=== PATIENT | female | born 1955 | race Caucasian/White ===

== ENCOUNTER 2017-08-12 09:49 | Observation (INO) | payer BC ==
--- NOTE | 2017-08-12 10:03 | Emergency Department Record ---
History of Present Illness - General Chief Complaint: Palpitations Stated Complaint: PALPITATIONS Time Seen by Provider: 08/12/17 10:00 Source: Patient Mode of Arrival: Ambulatory Limitations: No limitations - History of Present Illness Initial Comments: The patient is here due to experiencing palpitations off and on all night long last night. She denied any pain with the palpitations. The patient reports she was getting them almost every minute all night long and it felt like her heart was beating irregularly. She denies any pain, SOB, ABHISHEK, sweating or nausea during the palpitations. Presently her symptoms have resolved. Additionally she had an episode of palpitations last week at work and felt very dizzy during the episode. She also had mild mid back pain during the episode but it resolved when the palpitations resolved. She denies any cardiac risk factors and has no hx of any GARCIA or CP with exertion. MD Complaint: Palpitations Onset/Timin -: Week(s) Associated Symptoms: Denies other symptoms - Related Data Home Medications Medication Instructions Recorded Confirmed Last Taken Levothyroxine Sodium [Synthroid] 88 mcg PO DAILY 08/12/17 08/12/17 Unknown Allergies Allergy/AdvReac Type Severity Reaction Status Date / Time Sulfa (Sulfonamide Allergy Intermediate VOMITING Verified 08/12/17 09:52 Antibiotics) Travel Screening - Travel/Exposure Within Last 30 Days Have you traveled within the last 30 days?: No Review of Systems Constitutional: Denies: Chills, Fever Eyes: Denies: Eye discharge ENT: Denies: Congestion Respiratory: Denies: Cough, Dyspnea Cardiovascular: Reports: Arrhythmia. Denies: Chest pain Endocrine: Denies: Fatigue Gastrointestinal: Denies: Abdominal pain Genitourinary: Denies: Dysuria Musculoskeletal: Denies: Arthralgia Past Medical History - SOCIAL HISTORY Smoking Status: Former smoker Alcohol Use: None Drug Use: None - RESPIRATORY Hx Respiratory Disorders: No - CARDIOVASCULAR Hx Cardio Disorders: No - NEURO Hx Neuro Disorders: No - GI Hx GI Disorders: Yes Hx Reflux: Yes Hx Nausea/Vomiting: Yes - Hx Genitourinary Disorders: No - ENDOCRINE Hx Endocrine Disorders: Yes Hx Thyroid Disease: Yes - MUSCULOSKELETAL Hx Musculoskeletal Disorders: Yes Hx Arthritis: Yes - PSYCH Hx Psych Problems: No - HEMATOLOGY/ONCOLOGY Hx Hematology/Oncology Disorders: No Family Medical History Any Significant Family History?: Yes Hx Cancer: Mother, Grandparents *Cancer Comment: breast Physical Exam - General General Appearance: Alert, Oriented x3, Cooperative, No acute distress - Head Head exam: Atraumatic - Eye Eye exam: Normal appearance, PERRL - ENT ENT exam: Normal exam Throat exam: Normal inspection. negative: Tonsillar erythema, Tonsillar exudate - Neck Neck exam: Normal inspection, Full ROM, Lymphadenopathy (Mild L anterior cervical nodes.). negative: Meningismus, Tenderness - Respiratory Respiratory exam: Normal lung sounds bilaterally. negative: Respiratory distress - Cardiovascular Cardiovascular Exam: Regular rate, Normal rhythm, Normal heart sounds - GI/Abdominal GI/Abdominal exam: Soft, Normal bowel sounds. negative: Tenderness - Extremities Extremities exam: Normal inspection, Full ROM, Normal capillary refill. negative: Calf tenderness, Pedal edema, Tenderness - Neurological Neurological exam: Alert, Normal gait, Oriented X3. negative: Abnormal gait, Motor sensory deficit - Psychiatric Psychiatric exam: negative: Depressed Course Vital Signs 08/12/17 09:52 Temperature 98.1 F Pulse Rate 77 Respiratory 18 Rate Blood Pressure 178/99 Pulse Ox 98 - Reevaluation(s) Reevaluation #1: The patient is doing very well at this time. She did have a 25 second run of SVT vs Aflutter which did resolve spontaneously. I did explain to her that I felt the prudent thing to do is admit her to the hospital overnight and monitor her HR and obtain a Cardiology consult. I also did discuss the case with Dr. Murdock and he does agree to the plan. 08/12/17 11:11 Medical Decision Making - Data Complexity MDM Data: Labs Ordered and/or Reviewed, X-Ray Ordered and/or Reviewed, EKG Ordered and/or Reviewed - Lab Data Result diagrams: 08/12/17 10:11 08/12/17 10:11 - EKG Data -: EKG Interpreted by Me EKG: No Acute Changes - Radiology Data Radiology results: Report reviewed (CXR: Neg) Disposition Disposition: Admit Clinical Impression: Intermittent palpitations Disposition: Still a Patient at [facility] Decision to Admit: Admit from ER Decision to Admit Date: 08/12/17 Decision to Admit Time: 11:13 Accepting Physician: Collette. Time Discussed w/Accepting Physician: 11:13 Condition: (2) Stable Time of Disposition: 11:13 Quality - Quality Measures Quality Measures: N/A - Blood Pressure Screening View Details: Yes Does Patient Have Any of the Following: No Blood Pressure Classification: Hypertensive Reading Systolic Measurement: 178 Diastolic Measurement: 99 Screening for High Blood Pressure: < Pre-Hypertensive BP, F/U Documented > [ G8950] Pre-Hypertensive Follow-up Interventions: Referral to alternative/primary care provider.
[2017-08-12] MEDS ORDERED: ASPIRIN 325 MG TABLET PO ONE (10:09)
[2017-08-12 10:18] LABS: BASO % 0.4 % (0-6); EOS % 0.9 % (0-6); GRAN % 72.4 % (47-80); HEMATOCRIT 44.3 % (35.0-47.0); HEMOGLOBIN 15.2 gm/dl (11.6-16.0); LYMPH % 18.5 % (16-45); MEAN CELL VOLUME 90.4 fl (81-97); MEAN CORPUSCULAR HGB CONC 34.3 g/dl (32-36); MEAN PLATELET VOLUME 9.2 fl (7.4-10.4); MONO % 7.8 % (0-9); PLATELET COUNT 243 K/uL (130-400); RED CELL DISTRIBUTION WIDTH 12.2 % (11.5-14.5); WHITE BLOOD COUNT W/O DIFF 4.5 K/uL (4.2-12.2)
[2017-08-12 10:30] LABS: INR 0.99; PARTIAL THROMBOPLASTIN TIME 26.1 SECONDS (24.5-39.1); PROTHROMBIN TIME (PATIENT) 10.7 SECONDS (9.5-12.1)
[2017-08-12 10:43] LABS: BLOOD UREA NITROGEN 12 mg/dL (8-23); CKMB 4.4 ng/mL (<3.77); CREATINE PHOSPHOKINASE 126 U/L (26-192); CREATININE 0.7 mg/dL (0.5-0.9); EST GLOMERULAR FILTRATION RATE > 60 mL/min; GLUCOSE,RANDOM 112 mg/dL (74-109); THYROID STIMULATING HORMONE 7.32 uIU/mL (0.270-4.20)
[2017-08-12 10:55] LABS: TROPONIN I < 0.30 ng/mL (0.00-0.300)
[2017-08-12] MEDS ORDERED: LEVOTHYROXINE SODIUM 88 MCG TABLET PO SCH (12:00)
--- NOTE | 2017-08-12 12:44 | History & Physical ---
History of Present Illness - Date of Service Date of Service for History & Physical: 08/12/17 - History of Present Illness Admitting Diagnosis: 1. Intermittent Heart Palpitations History of Present Illness: Ms. Sanchez kadie 61 y/o female who presents with acute onset palpitations last night while at home. She had a similar episode last week while and she felt somewhat dizzy but denies passing out. The symptoms resolved spontaneously at that time. She did not have chest pain, sweating, nausea or vomiting during the episodes and has no history of coronary artery disease and denies drug or alcohol use. She does however have a history of thyroid disease and says that she ran out of her Levothyroxine and hadn't been taking it for 3 weeks. On arrival to the ED she was noted have non-sustained SVT 25 secs on monitor, ECG showed normal sinus w/o acute chages. The patient was admitted to the [facility] for monitoring on telemetry. Travel Screening - Travel/Exposure Within Last 30 Days Have you traveled within the last 30 days?: No - Travel/Exposure Within Last Year Have you traveled outside the [place] in the last year?: No - Additonal Travel Details Have you been exposed to anyone with a communicable illness?: No - Travel Symptoms Symptom Screening: None Review of Systems Constitutional: Denies: Chills, Fever Eyes: Denies: Eye discharge ENT: Denies: Congestion Respiratory: Denies: Cough, Dyspnea Cardiovascular: Reports: Arrhythmia, Palpitations. Denies: Chest pain Endocrine: Denies: Fatigue Gastrointestinal: Denies: Abdominal pain Genitourinary: Denies: Dysuria Musculoskeletal: Denies: Arthralgia Past Medical History - SOCIAL HISTORY Smoking Status: Former smoker Alcohol Use: None Drug Use: None - RESPIRATORY Hx Respiratory Disorders: No - CARDIOVASCULAR Hx Cardio Disorders: No Hx Palpitations: Yes (last week) - NEURO Hx Neuro Disorders: No - GI Hx GI Disorders: Yes Hx Reflux: Yes Hx Nausea/Vomiting: Yes - Hx Genitourinary Disorders: No - ENDOCRINE Hx Endocrine Disorders: Yes Hx Thyroid Disease: Yes - MUSCULOSKELETAL Hx Musculoskeletal Disorders: Yes Hx Arthritis: Yes - PSYCH Hx Psych Problems: No - HEMATOLOGY/ONCOLOGY Hx Hematology/Oncology Disorders: No Family Medical History Any Significant Family History?: Yes Hx Cancer: Mother, Grandparents *Cancer Comment: breast H&P Meds/Allergies - Allergies Allergies: Allergies Allergy/AdvReac Type Severity Reaction Status Date / Time Sulfa (Sulfonamide Allergy Intermediate VOMITING Verified 08/12/17 09:52 Antibiotics) - Home Medications Home Medications Medication Instructions Recorded Confirmed Last Taken Levothyroxine Sodium [Synthroid] 88 mcg PO DAILY 08/12/17 08/12/17 Unknown - Active Medications Active Medications: Current Medications Aspirin (Ecotrin (Ec)) 325 mg PO DAILY [facility] Levothyroxine Sodium (Synthroid) 88 mcg PO DAILY [facility] Non-Formulary Medication (Multivitamin [Daily Multiple Vitamin]) 1 each PO DAILY REGINA Physical Exam - Vital Signs Vital Signs: Vital Signs - Last 24 Hrs Resp 08/12/17 12:13 20 - General General Appearance: Alert, Oriented x3, Cooperative, No acute distress Limitations: No limitations - Head Head exam: Atraumatic - Eye Eye exam: Normal appearance, PERRL - ENT ENT exam: Normal exam Throat exam: Normal inspection. negative: Tonsillar erythema, Tonsillar exudate - Neck Neck exam: Normal inspection, Full ROM, Lymphadenopathy (Mild L anterior cervical nodes.). negative: Meningismus, Tenderness - Respiratory Respiratory exam: Normal lung sounds bilaterally. negative: Respiratory distress - Cardiovascular Cardiovascular Exam: Regular rate, Normal rhythm, Normal heart sounds - GI/Abdominal GI/Abdominal exam: Soft, Normal bowel sounds. negative: Tenderness - Extremities Extremities exam: Normal inspection, Full ROM, Normal capillary refill. negative: Calf tenderness, Pedal edema, Tenderness - Neurological Neurological exam: Alert, Normal gait, Oriented X3. negative: Abnormal gait, Motor sensory deficit - Psychiatric Psychiatric exam: negative: Depressed Results - Labs Result Diagrams: 08/12/17 10:11 08/12/17 10:11 VTE H&P Assessment - Risk for VTE Risk for VTE: No Risk Level: Very Low Risk Assessment Date: 08/12/17 Risk Assessment Time: 16:39 VTE Orders Placed or Will Be Placed: No VTE Reason for No Prophylaxis: Not Indicated Plan - Detailed Diagnosis and Plan (1) Nonsustained paroxysmal supraventricular tachycardia Plan: - telemetry showed 25 sec run NSVT, cont monitoring, CXR - negatve for acute cardiopulmonary process - patient started on Cardizem 30mg BID, Cardiology consulted for recommendations. - discussed with Dr. Lopez regarding plan for outpatient followup. - will observe on medication overnight with plan for d/c in am. Current Visit: Yes Status: Acute Base Code: I47.1 - SUPRAVENTRICULAR TACHYCARDIA (2) Hypothyroidism Plan: - hx of thyroid disease: TSH 7.32 - on synthyroid 88mcg Current Visit: Yes Status: Acute Base Code: E03.9 - HYPOTHYROIDISM, UNSPECIFIED (3) Full code status Current Visit: Yes Status: Acute Base Code: Z78.9 - OTHER SPECIFIED HEALTH STATUS - Disposition Patient to be observed overnight on tele. Started Cardizem 30mg BID this afternoon. D/C tomorrow with follow up with Dr. Lopez in 4 weeks.
[2017-08-12] MEDS ORDERED: DILTIAZEM HCL 30 MG TABLET PO SCH (14:52)
[2017-08-12] MEDS: DILTIAZEM HCL 30 MG TABLET PO SCH (22:34)
[2017-08-12 23:33] LABS: CKMB 2.7 ng/mL (<3.77)
[2017-08-12 23:45] LABS: TROPONIN I < 0.30 ng/mL (0.00-0.300)
[2017-08-13] MEDS ORDERED: LEVOTHYROXINE SODIUM 88 MCG TABLET PO SCH (07:00)
[2017-08-13] MEDS ORDERED: LEVOTHYROXINE SODIUM 75 MCG TABLET PO SCH (07:00)
--- NOTE | 2017-08-13 09:16 | RADIOLOGY REPORT ---
EXAM: CHEST, TWO VIEWS HISTORY: PALPITATIONS AND VERTIGO. TECHNIQUE: PA and lateral views of the chest were obtained. Comparison: None. FINDINGS: The heart size is normal. Mild torsion of the aorta. The lungs appear expanded with no acute infiltrate seen. No pleural effusion or pneumothorax evident. Mild upper thoracic curve to the right. IMPRESSION: MILD UPPER THORACIC CURVE TO THE RIGHT. NO ACUTE INFILTRATE EVIDENT. JOB NUMBER: [id number] MTDD
--- NOTE | 2017-08-13 09:45 | Discharge Summary ---
Providers Discharge Summary Date: 08/13/17 Date of admission: 08/12/17 11:43 Expected Date of Discharge: 08/13/17 Attending physician: Forrest Duarte Primary care physician: Poonam Johnson Physical Exam - Vital Signs Vital Signs: Vital Signs - Last 24 Hrs Temp Pulse Resp BP Pulse Ox 08/13/17 08:34 98.0 F 55 L 18 123/84 98 08/13/17 05:00 97.9 F 50 L 16 124/82 99 08/13/17 00:00 47 L 16 126/83 96 08/12/17 21:00 98.1 F 53 L 16 125/79 98 08/12/17 17:43 97.9 F 55 L 18 140/88 98 08/12/17 13:55 98.2 F 56 L 18 131/92 98 08/12/17 12:13 20 08/12/17 11:55 97.8 F 62 18 144/97 96 - General General Appearance: Alert, Oriented x3, Cooperative, No acute distress Limitations: No limitations - Head Head exam: Atraumatic - Eye Eye exam: Normal appearance, PERRL - ENT ENT exam: Normal exam Throat exam: Normal inspection. negative: Tonsillar erythema, Tonsillar exudate - Neck Neck exam: Normal inspection, Full ROM, Lymphadenopathy (Mild L anterior cervical nodes.). negative: Meningismus, Tenderness - Respiratory Respiratory exam: Normal lung sounds bilaterally. negative: Respiratory distress - Cardiovascular Cardiovascular Exam: Regular rate, Normal rhythm, Normal heart sounds - GI/Abdominal GI/Abdominal exam: Soft, Normal bowel sounds. negative: Tenderness - Extremities Extremities exam: Normal inspection, Full ROM, Normal capillary refill. negative: Calf tenderness, Pedal edema, Tenderness - Neurological Neurological exam: Alert, Normal gait, Oriented X3. negative: Abnormal gait, Motor sensory deficit - Psychiatric Psychiatric exam: negative: Depressed Hospitalization - Hospitalization Admission Diagnosis: 1. Intermittent Heart Palpitations - Problem List/Discharge Diagnosis (1) Nonsustained paroxysmal supraventricular tachycardia Status: Acute Base Code: I47.1 - SUPRAVENTRICULAR TACHYCARDIA Comment: 08/13 - plan as stated below (2) Intermittent palpitations Status: Acute Base Code: R00.2 - PALPITATIONS Comment: 08/13- - telemetry showed 25 sec run NSVT, CXR - negatve for acute cardiopulmonary process - continue Cardizem 30mg BID, Cardiology consulted for recommendations. - she will fup with Dr. Lopez as outpatient. outpatient ECHO and stress test in 4 weeks will be scheduled prior to d/c. - patient will contact pcps office tmrw to schedule follow up visit as Dr. Johnson's office is not open today. (3) Hypothyroidism Status: Acute Base Code: E03.9 - HYPOTHYROIDISM, UNSPECIFIED Comment: 08/13 - continue 88 mcg of Levothyroxine. Follow up with PCP re elevated TSH. (4) Full code status Status: Acute Base Code: Z78.9 - OTHER SPECIFIED HEALTH STATUS Comment: - pt remained full code during her stay - Hospitalization Course Disposition: Home, Self-Care Hospital Course: Ms. Sanchez kadie 61 y/o female who presents with acute onset palpitations last night while at home. She had a similar episode last week while and she felt somewhat dizzy but denies passing out. The symptoms resolved spontaneously at that time. She did not have chest pain, sweating, nausea or vomiting during the episodes and has no history of coronary artery disease and denies drug or alcohol use. She does however have a history of thyroid disease and says that she ran out of her Levothyroxine and hadn't been taking it for 3 weeks. On arrival to the ED she was noted have non-sustained SVT 25 secs on monitor, ECG showed normal sinus w/o acute chages. The patient was admitted to the [facility] for monitoring on telemetry. 08/13/17: patient lying in bed comfortably with her at bedside. states she feels great. she's very anxious to get home. tolerating meals. denies cp, sob, cough, dizziness, lightheadedness, or headache. ambulating well. Condition at Discharge: (2) Stable Discharge Medications - Discharge Medications Prescriptions: Diltiazem HCl [Cardizem] 30 mg PO BID #60 Levothyroxine Sodium [Synthroid] 88 mcg PO DAILY #10 Home Medications: Ambulatory Orders Multivitamin [Daily Multiple Vitamin] 1 each PO DAILY 06/16/15 [Last Taken Unknown] Diltiazem HCl [Cardizem] 30 mg PO BID #60 08/13/17 [Last Taken Unknown] Levothyroxine Sodium [Synthroid] 88 mcg PO DAILY #10 08/13/17 [Last Taken Unknown] Discharge Plan - Discharge Instructions Activity at Discharge: Other (as per cardiology) Diet at Discharge: Regular Diet Instructions: Supraventricular Tachycardia (DC), Transthoracic Echocardiogram ( DC), Cardiac Stress Test (DC) Additional Instructions: 2 Activity: As tolerated 2 Diet: Regular Diet 2 Consults: [Outpatient ECHO on 09/10/17 at 9:45am Outpatient Treadmill stress test 09/11/17 at 9:45am.] 2 Follow Up: [See Dr Lopez in 4 weeks on 09/23/17 at 2pm Follow up with primary care within 2 weeks] 2 Dressing/Wound Care: (Type) (Change) 2 Additional: [] Cardizem 30 mg twice a day. Continue home medications. Return to the emergency room with any new or worsening symptoms Quality Measures - Quality Measures Quality Measures: Documentation of Current Medications in Medical Record, Screening for High Blood Pressure and F/U Documented - Current Medications Quality Measure: Measure #130: Documentation of Current Medications Documentation of Current Medications: <Current Medications Documented/Reviewed> [G8427] - Blood Pressure Screening Quality Measure: Screening for High Blood Pressure and Follow-Up Documented Does Patient Have Any of the Following: No, Active Dx of HTN Blood Pressure Classification: Hypertensive Reading Systolic Measurement: 178 Diastolic Measurement: 99 Screening for High Blood Pressure: < First Hypertensive BP, F/U Documented > [ G8950] Pre-Hypertensive Follow-up Interventions: Follow-up with rescreen every year. First Hypertensive Follow-up Interventions: Follow-up with rescreen GT 1 day and LT 4 weeks. - Elder Abuse Suspicion Index EASI Reference Information: Sterling FRAGA, Darion C, Demetria D, Brenda Moss.Development and validation of a tool to assist physicians identification of elder abuse: The Elder Abuse Suspicion Index (EASI ). Journal of Elder Abuse and Neglect, 2008; 20 (3): 276-300.
[2017-08-13] MEDS: DILTIAZEM HCL 30 MG TABLET PO SCH (09:54)
[2017-08-13] MEDS ORDERED: MULTIVITAMINS/MINERALS TABLET PO SCH (10:00)
[2017-08-13] MEDS ORDERED: ASPIRIN 325 MG TAB ENTERIC-COATED PO SCH (10:00)
--- NOTE | 2017-08-13 14:00 | Medical Records Consult ---
DATE OF CONSULTATION: 08/12/2017 REASON FOR CONSULTATION: Palpitations. HISTORY OF PRESENT ILLNESS: The patient is a 60-year-old white female who presented to the emergency room last night after experiencing palpitations at home. In the emergency room, she on the monitor had an episode of what appears to be a reentrant SVT at about 150 beats per minute that spontaneously stopped. This reproduced her symptoms. She had a previous episode about a week ago where she became lightheaded and was aware of her heart racing. She had no verónica syncope. She denies any known history of heart disease. She denies any history of recent chest pain, PND, or orthopnea. The only medication she is taking is thyroid medication, which she had been off for a while and that was restarted recently. She does have a history of esophageal ulcer that was discovered 2 years ago. It only bothers her if she drinks caffeinated products. SOCIAL HISTORY: Former smoker. Alcohol use occasional. ALLERGIES: SULFA. HOME MEDICATIONS: Levothyroxine 88 mcg a day. FAMILY MEDICAL HISTORY: Positive for cancer, specifically breast cancer. REVIEW OF SYSTEMS: General: No recent fever, chills, night sweats, weight loss. No recent headaches, change in vision, loss of hearing. Respiratory: Denies cough, hemoptysis. Gastrointestinal: Denies nausea and vomiting, diarrhea, melena. Genitourinary: Denies dysuria, hematuria, pyuria. Musculoskeletal: Denies arthralgias, arthritis. Endocrine: See HPI. Does have some fatigue. PHYSICAL EXAMINATION: VITAL SIGNS: Per nursing notes, reviewed and confirmed. GENERAL: A white female who actually appears younger than stated age. No acute distress. HEAD, EYES, EARS, NOSE, THROAT: Normocephalic and atraumatic. Pupils are equal, round, and reactive to light and accommodation. EOMs are intact. Conjunctivae and lids unremarkable. Buccal mucosa pink and moist. Uvula midline upon retraction. NECK: Supple. No thyromegaly, lymphadenopathy, or carotid bruits. CHEST: Clear to auscultation and percussion. CARDIOVASCULAR: S1 greater than S2. No murmurs, gallops, lifts, or heaves. PMI is normal. ABDOMEN: Soft. There is no tenderness or masses. GENITORECTAL: Deferred. EXTREMITIES: Pulses 2+/4. There is no cyanosis or edema. NEUROLOGIC: Cranial nerves II-XII are intact. Sensation intact. PSYCHIATRIC: Affect is appropriate. Patient oriented to person, place, and time. IMPRESSION: 1. Reentrant supraventricular tachycardia. 2. Hypothyroidism. PLAN: Recommend Diltiazem 300 mg p.o. b.i.d. I do not feel this was an ischemic episode. The patient can be discharged. Follow up in our office here in [place] for an outpatient echocardiogram. I would like to see her back in 3-4 weeks. She was instructed to return to the emergency room if she had recurrent symptoms that last for more than 10-15 minutes. I also instructed her in a Valsalva maneuver. She also is to return to the emergency room if she is very symptomatic. BEE
== END 2017-08-13 12:15 | disposition home or self-care (01) ==
LOC: ER 09:49 → MEDSURG 11:43
PROVIDERS: ADMIT Internal Medicine; ATTEND Internal Medicine
DX: I47.1 Supraventricular tachycardia (principal); R00.2 Palpitations; E03.9 Hypothyroidism, unspecified; Z87.891 Personal history of nicotine dependence
CPT/HCPCS: 99285 ×2; 82550; 85025; 85730; 85610; 82553; 84484; 80048; 84443; 71020; 93005 ×2; 93010; G0378 ×2; 99217; 99220

== ENCOUNTER 2017-10-17 16:19 | Observation (INO) | payer BC ==
[2017-10-17] MEDS ORDERED: ONDANSETRON HCL IV 4 MG/2 ML VIAL IVP ONE (16:53)
--- NOTE | 2017-10-17 17:00 | Emergency Department Record ---
History of Present Illness - General Chief Complaint: Palpitations Stated Complaint: RAPID HEART RATE Time Seen by Provider: 10/17/17 16:46 Source: Patient Mode of Arrival: Ambulatory Limitations: No limitations - History of Present Illness Initial Comments: The patient is here due to a 4 hour hx of intermittent palpitations and SVT. She has a hx of the same and was an inpatient for it in August. She was placed on Cardizem by Dr. Lopez but subsequently was changed to Cattapres by her PCP Dr. Johnson. The patient has been doing well until about 1pm today when the SVT returned. She denies any CP or SOB or sweating but is a little dizzy at times with the fast HR. MD Complaint: "Heart racing", Palpitations Onset/Timin -: Hour(s) Associated Symptoms: Nausea/vomiting Treatment Prior to Arrival Comment:: Aspirin 81mg at 12 noon - Related Data Home Medications Medication Instructions Recorded Confirmed Last Taken Aspirin [Aspir-Low] 81 mg PO DAILY 10/17/17 10/17/17 10/17/17 Clonidine HCl [Catapres ER] 0.1 mg PO BID 10/17/17 10/17/17 10/17/17 Hydrochlorothiazide [Hctz 12.5MG] 25 mg PO DAILY 10/17/17 10/17/17 10/17/17 Levothyroxine Sodium [Synthroid] 75 mcg PO DAILY 10/17/17 10/17/17 10/17/17 Lorazepam [Ativan] 0.5 mg PO QHS 10/17/17 10/17/17 10/16/17 Allergies Allergy/AdvReac Type Severity Reaction Status Date / Time Sulfa (Sulfonamide Allergy Intermediate VOMITING Verified 08/12/17 09:52 Antibiotics) Travel Screening - Travel/Exposure Within Last 30 Days Have you traveled within the last 30 days?: No - Travel/Exposure Within Last Year Have you traveled outside the [place] in the last year?: No - Additonal Travel Details Have you been exposed to anyone with a communicable illness?: No - Travel Symptoms Symptom Screening: None Review of Systems Constitutional: Denies: Chills, Fever Eyes: Denies: Eye discharge ENT: Denies: Congestion Respiratory: Denies: Cough, Dyspnea Cardiovascular: Reports: Arrhythmia, Palpitations. Denies: Chest pain Past Medical History - SOCIAL HISTORY Smoking Status: Former smoker Alcohol Use: Rare Drug Use: None - RESPIRATORY Hx Respiratory Disorders: No - CARDIOVASCULAR Hx Cardio Disorders: Yes Hx Hypertension: Yes Hx Palpitations: Yes (last week) - NEURO Hx Neuro Disorders: No - GI Hx GI Disorders: Yes Hx Reflux: Yes Hx Nausea/Vomiting: Yes - Hx Genitourinary Disorders: No - ENDOCRINE Hx Endocrine Disorders: Yes Hx Thyroid Disease: Yes - MUSCULOSKELETAL Hx Musculoskeletal Disorders: Yes Hx Arthritis: Yes - PSYCH Hx Psych Problems: No - HEMATOLOGY/ONCOLOGY Hx Hematology/Oncology Disorders: No Family Medical History Any Significant Family History?: No Hx Cancer: Mother, Grandparents *Cancer Comment: breast Physical Exam - General General Appearance: Alert, Cooperative, No acute distress - Head Head exam: Atraumatic, Normocephalic, Normal inspection - Eye Eye exam: Normal appearance, PERRL - Neck Neck exam: Normal inspection, Full ROM. negative: Tenderness - Respiratory Respiratory exam: Normal lung sounds bilaterally. negative: Respiratory distress - Cardiovascular Cardiovascular Exam: Normal rhythm, Tachycardia. negative: Regular rate - GI/Abdominal GI/Abdominal exam: Soft, Normal bowel sounds. negative: Tenderness - Extremities Extremities exam: Normal inspection, Full ROM, Normal capillary refill. negative: Tenderness - Neurological Neurological exam: Alert, Normal gait. negative: Abnormal gait, Motor sensory deficit Course Vital Signs 10/17/17 16:23 Temperature 97.7 F Pulse Rate 81 Respiratory 20 Rate Blood Pressure 183/120 Pulse Ox 99 - Reevaluation(s) Reevaluation #1: The patient is doing very well at this time. She did spontaneously convert and now is in NSR at 70. We are waiting on her lab work and will continue to monitor her HR. 10/17/17 17:08 Reevaluation #2: The patient is doing very well at this time. Her BP is improved and she has had no further episodes of SVT. I did discuss the plan with Dr. Murdock and he does agree to admit the patient overnight and consult Dr. Chun tomorrow. We will monitor the patient's HR and recheck cardiac enzymes. 10/17/17 17:46 Medical Decision Making - Data Complexity MDM Data: Labs Ordered and/or Reviewed, EKG Ordered and/or Reviewed - Lab Data Result diagrams: 10/17/17 16:40 10/17/17 16:40 - EKG Data -: EKG Interpreted by Me EKG: No Acute Changes, Normal EKG Disposition Disposition: Admit Clinical Impression: Nonsustained paroxysmal supraventricular tachycardia Disposition: Still a Patient at [facility] Decision to Admit: Admit from ER Decision to Admit Date: 10/17/17 Decision to Admit Time: 17:47 Accepting Physician: Felicia Time Discussed w/Accepting Physician: 17:47 Condition: (2) Stable Forms: Patient Portal Access Time of Disposition: 17:47 Quality - Quality Measures Quality Measures: N/A - Blood Pressure Screening View Details: Yes Does Patient Have Any of the Following: No, Active Dx of HTN Blood Pressure Classification: Hypertensive Reading Systolic Measurement: 183 Diastolic Measurement: 120 Screening for High Blood Pressure: Patient Exclusion, Hx of HTN [[id number]]
[2017-10-17] MEDS ORDERED: DILTIAZEM 25MG/5ML VIAL IV ONE (17:01)
[2017-10-17] MEDS ORDERED: 0.9 % SODIUM CHLORIDE 1,000 ML BAG IV ONE (17:01)
[2017-10-17 17:06] LABS: BASO % 0.3 % (0-6); EOS % 1.1 % (0-6); GRAN % 71.9 % (47-80); HEMATOCRIT 46.8 % (35.0-47.0); HEMOGLOBIN 16.1 gm/dl (11.6-16.0); LYMPH % 18.7 % (16-45); MEAN CELL VOLUME 89.5 fl (81-97); MEAN CORPUSCULAR HGB CONC 34.4 g/dl (32-36); PLATELET COUNT 269 K/uL (130-400); RED BLOOD COUNT 5.23 M/uL (3.80-5.40); RED CELL DISTRIBUTION WIDTH 11.8 % (11.5-14.5); WHITE BLOOD COUNT W/O DIFF 7.5 K/uL (4.2-12.2)
[2017-10-17 17:07] LABS: MEAN CORPUSCULAR HEMOGLOBIN 30.7 pg (27-33)
[2017-10-17] MEDS ORDERED: LORAZEPAM 2 MG/ML VIAL IV ONE (17:08)
[2017-10-17] MEDS ORDERED: DILTIAZEM HCL 125 MG in 0.9 % SODIUM CHLORIDE 100ML 100 ML IV SCH (17:15)
[2017-10-17 17:16] LABS: BLOOD UREA NITROGEN 14 mg/dL (8-23); CREATININE 0.8 mg/dL (0.5-0.9); EST GLOMERULAR FILTRATION RATE > 60 mL/min
[2017-10-17 17:17] LABS: TOTAL PROTEIN 7.9 g/dL (6.6-8.7)
[2017-10-17 17:19] LABS: GLUCOSE,RANDOM 140 mg/dL (74-109); INR 0.99; PARTIAL THROMBOPLASTIN TIME 26.5 SECONDS (24.5-39.1); PROTHROMBIN TIME (PATIENT) 10.7 SECONDS (9.5-12.1)
[2017-10-17 17:21] LABS: ALT/SGPT 21 U/L (<33)
[2017-10-17 17:22] LABS: ALB/GLOB RATIO 1.6 (1.1-1.8); ALBUMIN 4.9 g/dL (4.0-5.0); ALKALINE PHOSPHATASE 71 U/L (35-104); AST/SGOT 23 U/L (10.0-35.0); CREATINE PHOSPHOKINASE 86 U/L (26-192)
[2017-10-17 17:25] LABS: CKMB 2.7 ng/mL (<3.77)
[2017-10-17 17:32] LABS: THYROID STIMULATING HORMONE 0.25 uIU/mL (0.270-4.20)
[2017-10-17] MEDS ORDERED: ACETAMINOPHEN 500 MG TABLET PO PRN (21:03)
[2017-10-17] MEDS: ONDANSETRON HCL IV 4 MG/2 ML VIAL IVP PRN (21:19)
[2017-10-17] MEDS ORDERED: LORAZEPAM 0.5 MG TABLET PO SCH (22:00)
[2017-10-17 22:33] LABS: CKMB 2.8 ng/mL (<3.77)
[2017-10-17] MEDS ORDERED: ADENOSINE 6 MG/2 ML VIAL IVP ONE (23:30)
[2017-10-17] MEDS ORDERED: 0.9 % SODIUM CHLORIDE 1000ML 1,000 ML IV PRN (23:30)
[2017-10-18] MEDS: CLONIDINE HCL 0.1 MG TABLET PO SCH ×2 (00:57→09:21)
[2017-10-18] MEDS: ONDANSETRON HCL IV 4 MG/2 ML VIAL IVP PRN (03:37)
[2017-10-18] MEDS ORDERED: METOPROLOL TART 25 MG TABLET PO ONE (05:58)
[2017-10-18 07:34] LABS: CKMB 2.9 ng/mL (<3.77)
--- NOTE | 2017-10-18 07:36 | History & Physical ---
History of Present Illness - Date of Service Date of Service for History & Physical: 10/18/17 - History of Present Illness Admitting Diagnosis: 1. Nonsustained Supraventricular Tachycardia History of Present Illness: Mrs. Sanchez is 61 y/o male female with know history of SVT who presented to the Ed with palpitations and dizziness which came on suddenly yesterday. The patient was on Cardizem when she was last discharged, however this was recently discontinued by her PCP and she was started on Catapres 0.1mg BID for BP control. The patient also has a history of hypothyroidism and has recent changes in Synthroid doses. On arrival to the ED the patient's ECG showed SVT with vent rate in the 150s. The patient was given Cardizem but remained tachycardic and was admitted for further monitoring on telemetry. 10/17/17 - Throughout most of the evening the patient's heart rate remained uncontrolled and she was given a dose of adenosine 6mg and started on Cardizem drip with titration. She did have some control of rate but within a few hours she again showed runs of SVT on telemetry. The patient ws started on Metroprolol 25mg once and she converted to sinus and has remained in sinus then. On examination this morning the patient is alert, awake and oriented without new complaint. Travel Screening - Travel/Exposure Within Last 30 Days Have you traveled within the last 30 days?: No - Travel/Exposure Within Last Year Have you traveled outside the [place] in the last year?: No - Additonal Travel Details Have you been exposed to anyone with a communicable illness?: No - Travel Symptoms Symptom Screening: None Review of Systems Constitutional: Denies: Chills, Fever Eyes: Denies: Eye discharge ENT: Denies: Congestion Respiratory: Denies: Cough, Dyspnea Cardiovascular: Reports: Arrhythmia, Palpitations. Denies: Chest pain Past Medical History - SOCIAL HISTORY Smoking Status: Former smoker Alcohol Use: None Drug Use: None - RESPIRATORY Hx Respiratory Disorders: No Hx Asthma: No Hx Bronchitis: No Hx COPD: No Hx Dyspnea: No Hx Pneumonia: No Hx Pulmonary Embolism: No Hx Sleep Apnea: No Hx Tuberculosis: No Hx of CPAP: No - CARDIOVASCULAR Hx Cardio Disorders: Yes Hx Cardiac Cath: No Hx Chest Pain: No Hx CHF: No Hx Deep Vein Thrombosis: No Hx Edema: No Hx Heart Attack: No Hx Hypertension: Yes Hx Hypotension: No Hx Irregular Heartbeat: Yes Hx Palpitations: Yes (last week) Hx Pacemaker/Defib: No Hx Vascular Disease: No - NEURO Hx Neuro Disorders: No Hx Brain Tumor: No Hx CVA: No Hx Dementia: No Hx Dizziness: Yes Hx Headaches: No Hx Neuropathy: No Hx Parkinson's Disease: No Hx Seizures: No Hx Speech Problem: No Hx TIA: No - GI Hx GI Disorders: Yes Hx Abdominal Pain: Yes Hx Celiac Disease: No Hx Crohn's Disease: No Hx Diverticulitis: No Hx GI Bleed: No Hx Reflux: Yes Hx Hepatitis/Jaundice: No Hx Hiatal Hernia: No Hx Irritable Bowel: No Hx Liver Disease: No Hx Nausea/Vomiting: Yes Hx Obstructive Bowel: No Hx Pancreatitis: No Hx Rectal Bleeding: No Hx Ulcer: Yes Hx Wt Loss/Wt Gain: No Hx of Polyps: No - Hx Genitourinary Disorders: No Hx Bladder Problem: Yes (frequency/urgency) Hx Dialysis: No Hx Kidney Stones: No Hx Renal Disease: No Hx UTI: No - ENDOCRINE Hx Endocrine Disorders: Yes Hx Diabetes: No Hx Thyroid Disease: Yes - MUSCULOSKELETAL Hx Musculoskeletal Disorders: Yes Hx Arthritis: Yes Hx Back Injury: No Hx Fibromyalgia: No Hx Gout: No Hx Musculoskeletal Disease: No Hx Osteoporosis: No - PSYCH Hx Psych Problems: No Hx Anxiety: No Hx Behavior Problems: No Hx Depression: No Hx Emotional Abuse: No Hx Sexual Abuse: No Hx Suicide Attempt: No Major Depressive Episode: No Feelings of Hopelessness: No - HEMATOLOGY/ONCOLOGY Hx Hematology/Oncology Disorders: No Hx Anemia: No Hx Blood Disorders: No Hx Bruising: No Hx Cancer: No Hx Clotting Problems: No Hx Sickle Cell Disease: No Hx Unexplained Bleeding: No Hx Blood Transfusions: No Hx Blood Transfusion Reaction: No Family Medical History Any Significant Family History?: No Hx Cancer: Mother, Brother/Sister, Grandparents *Cancer Comment: breast Hx HTN: Mother H&P Meds/Allergies - Allergies Allergies: Allergies Allergy/AdvReac Type Severity Reaction Status Date / Time Sulfa (Sulfonamide Allergy Intermediate VOMITING Verified 08/12/17 09:52 Antibiotics) - Home Medications Home Medications Medication Instructions Recorded Confirmed Last Taken Aspirin [Aspir-Low] 81 mg PO DAILY 10/17/17 10/17/17 10/17/17 Clonidine HCl [Clonidine HCl] 0.1 mg PO BID 10/17/17 10/17/17 Unknown Hydrochlorothiazide [Hctz 12.5MG] 25 mg PO DAILY 10/17/17 10/17/17 10/17/17 Levothyroxine Sodium [Synthroid] 75 mcg PO DAILY 10/17/17 10/17/17 10/17/17 Lorazepam [Ativan] 0.5 mg PO QHS 10/17/17 10/17/17 10/16/17 - Active Medications Active Medications: Current Medications Acetaminophen (Tylenol 500mg Tab) 500 mg PO Q6H PRN PRN Reason: PAIN/TEMP Aspirin (Ecotrin (Ec)) 81 mg PO DAILY REGINA Clonidine HCl (Catapres) 0.1 mg PO BID REGINA Last Admin: 10/18/17 00:57 Dose: Not Given Hydrochlorothiazide (Hctz 25mg) 25 mg PO DAILY REGINA Diltiazem HCl 125 mg/ Sodium (Chloride) 125 mls @ 5 mls/hr IV TITRATE REGINA; 5 MG /HR PRN Reason: Protocol Last Titration: 10/18/17 06:14 Dose: 5 mg/hr, 5 mls/hr Sodium Chloride () 1,000 mls @ 100 mls/hr IV .Q10H PRN PRN Reason: LARGE VOLUME IV Last Admin: 10/17/17 23:30 Dose: 100 mls/hr Lorazepam (Ativan) 0.5 mg PO QHS REGINA Last Admin: 10/18/17 01:27 Dose: Not Given Ondansetron HCl (Zofran) 4 mg IVP Q4H PRN PRN Reason: NAUSEA Last Admin: 10/18/17 03:37 Dose: 4 mg Physical Exam - Vital Signs Vital Signs: Vital Signs - Last 24 Hrs Temp Pulse Resp BP Pulse Ox 10/18/17 06:02 142 H 18 127/99 97 10/18/17 05:00 63 18 96/69 97 10/18/17 04:10 50 L 18 102/75 97 10/18/17 04:00 61 16 102/70 96 10/18/17 03:00 131 H 18 109/91 95 10/18/17 02:00 78 18 128/73 96 10/18/17 01:00 153 H 18 134/101 98 10/17/17 23:15 180 H 20 151/110 98 10/17/17 23:03 98.6 F 74 18 141/59 10/17/17 22:58 73 16 144/90 95 10/17/17 21:45 151 H 18 120/95 98 10/17/17 20:45 98.0 F 66 16 132/74 96 - General General Appearance: Alert, Cooperative, No acute distress Limitations: No limitations - Head Head exam: Atraumatic, Normocephalic, Normal inspection - Eye Eye exam: Normal appearance, PERRL - Neck Neck exam: Normal inspection, Full ROM. negative: Tenderness - Respiratory Respiratory exam: Normal lung sounds bilaterally. negative: Respiratory distress - Cardiovascular Cardiovascular Exam: Normal rhythm, Tachycardia. negative: Regular rate - GI/Abdominal GI/Abdominal exam: Soft, Normal bowel sounds. negative: Tenderness - Extremities Extremities exam: Normal inspection, Full ROM, Normal capillary refill. negative: Tenderness - Neurological Neurological exam: Alert, Normal gait. negative: Abnormal gait, Motor sensory deficit Results - Labs Result Diagrams: 10/17/17 16:40 10/17/17 16:40 Labs Last 24 Hours: Laboratory Results - last 24 hr 10/17/17 22:10 CK-MB (CK-2) 2.8 Troponin T < 0.010 VTE H&P Assessment - Risk for VTE Risk for VTE: No Risk Level: Very Low Risk Assessment Date: 10/18/17 Risk Assessment Time: 15:15 VTE Orders Placed or Will Be Placed: No VTE Reason for No Prophylaxis: Not Indicated Plan - Detailed Diagnosis and Plan (1) Nonsustained paroxysmal supraventricular tachycardia Current Visit: Yes Status: Acute Base Code: I47.1 - SUPRAVENTRICULAR TACHYCARDIA Comment: - continue monitoring on tele currently ranging 60-70s, d/c IV cardizem - Metoprolol 25mg BID PO - Cardiology consulted - recommend EP evaluation for ablation. EP Cardiology at [facility] to see when discharged. (2) Hypertension Current Visit: Yes Status: Acute Base Code: I10 - ESSENTIAL (PRIMARY) HYPERTENSION Comment: - BP 118/80 - on Metoprolol 25mg BID. (3) Hypothyroidism Current Visit: No Status: Acute Base Code: E03.9 - HYPOTHYROIDISM, UNSPECIFIED Comment: - TSH 0.25mcg, recheck in 6-8 weeks on d/c - change Synthyroid dose to 50mcg QD. - Disposition D/C if stable this afternoon. F/U with cardiology as arranged
[2017-10-18] MEDS ORDERED: ASPIRIN 81 MG TABEC PO SCH (10:00)
[2017-10-18] MEDS ORDERED: HYDROCHLOROTHIAZIDE 25 MG TABLET PO SCH (10:00)
--- NOTE | 2017-10-18 14:55 | Medical Records Consult ---
DATE OF CONSULTATION: 10/18/17 HISTORY: Scottie Sanchez is a 61-year-old female followed by Dr. Lopez for SVT. She was on Cardizem. She stated it was not really controlling her symptoms that much. Her blood pressure was up so her family doctor discontinued the Cardizem and put her on Catapres. She had more SVT after stopping the Cardizem. She presented to the Emergency Room in SVT with palpitations and similar symptoms as in the past. PAST MEDICAL HISTORY: Hypertension, SVT, and thyroid disease. She denies any chest pain or shortness of breath. She felt a little dizzy with the fast heart rate. Also includes breast cancer and esophageal ulcers. HOME MEDICATIONS: Aspirin 81 mg daily, Clonidine 0.1 mg b.i.d., Hydrochlorothiazide 25 mg p.o. daily, Synthroid 75 mcg daily, and Ativan 0.5 mg q.h.s. ALLERGIES: SULFA CAUSES VOMITING. SOCIAL HISTORY: Former smoker. Alcohol - Occasional. REVIEW OF SYSTEMS: General - No fevers, chills, or night sweats. HEENT - No acute hearing or vision changes. Cardiovascular - As above. Pulmonary - No cough or hemoptysis. GI - No nausea or vomiting. No tarry or bloody stools. - No dysuria or hematuria. Endocrine - Positive for hypothyroidism. Heme - No unexplained bruising or bleeding. PHYSICAL EXAMINATION: Temperature - Afebrile. Heart rate - Sinus rhythm, 65 on telemetry. Blood pressure - 96/69. Pulse ox - 97% on room air. GENERAL: Alert in no apparent distress. HEENT: Normocephalic, atraumatic. NECK: Supple. No JVD. No carotid bruits. CARDIOVASCULAR: Regular rhythm. No murmurs, rubs or gallops. PULMONARY : Clear to auscultation. No accessory muscle use. ABDOMEN: Soft, nontender, nondistended. EXTREMITIES: No edema. The radial and pedal pulses are intact. NEUROLOGIC: She moves all extremities on command. Speech is clear. She answers questions appropriately. LABORATORY: See EMR. White blood cells 7.5, hemoglobin 16.1, hematocrit 46.8, platelets 269, glucose 140, BUN 14, creatinine 0.8, sodium 138, potassium 3.7, chloride 94, CPK 86, Troponin within normal limits. She had a recent echocardiogram in September that showed normal LV function, no valvular pathology of significance. EKG's showed SVT. Telemetry strips showed SVT. ASSESSMENT/PLAN: HISTORY OF SVT WITH RECURRENCE. SHE STATES SHE WASN'T DOING THAT GREAT ON A CALCIUM CHANNEL BLOCKERS, SHE HAS ALREADY BEEN STARTED ON A LOW DOSE BETA DIDI METOPROLOL TARTRATE REMINDING THAT THAT IS A TWICE A DAY MEDICATION SO SHE WILL BE DISCHARGED ON B.I.D. I WOULD START AT 25 MG B.I.D., WATCH HER FOR A GOOD EIGHT TO TEN HOURS AFTER STARTING THE BETA DIDI, HAVE HER AMBULATE IN THE [facility] IN THE HOSPITAL, AND MAKE SURE SHE DOESN'T HAVE ANY SIGNIFICANT RECURRENCE. IF SHE DOESN'T HAVE ANY SIGNIFICANT RECURRENCE THAT IS SYMPTOMATIC SHE COULD BE DISCHARGED HOME WITH FOLLOW-UP WITH ELECTROPHYSIOLOGY. WE WILL AGAIN TRY TO MAKE AN APPOINTMENT FOR HER, APPARENTLY SHE WAS NEVER CONTACTED IN THE PAST, DR. LOPEZ DID SET UP AN APPOINTMENT WITH EP. THERE IS OBVIOUSLY A VERY GOOD CHANCE SHE COULD HAVE RECURRENCE, BUT SHE HAS BEEN EDUCATED ON THE PROVOCATIVE MANEUVERS TO TRY TO BREAK THE SVT WHEN IT OCCURS, IF IT DOESN'T HAPPEN AND SHE DOESN'T FEEL WELL OBVIOUSLY SHE SHOULD RETURN TO THE EMERGENCY DEPARTMENT. JOB NUMBER: [id number] MTDD
--- NOTE | 2017-10-18 16:17 | Discharge Summary ---
Providers Date of admission: 10/17/17 20:43 Attending physician: Forrest Duarte Primary care physician: Poonam Johnson Physical Exam - Vital Signs Vital Signs: Vital Signs - Last 24 Hrs Temp Pulse Pulse Resp BP Pulse Ox 10/18/17 13:40 99.3 F 61 16 118/80 96 10/18/17 09:22 99.3 F 62 16 109/71 96 10/18/17 08:23 62 18 10/18/17 06:02 142 H 18 127/99 97 10/18/17 05:00 63 18 96/69 97 10/18/17 04:10 50 L 18 102/75 97 10/18/17 04:00 61 16 102/70 96 10/18/17 03:00 131 H 18 109/91 95 10/18/17 02:00 78 18 128/73 96 10/18/17 01:00 153 H 18 134/101 98 10/17/17 23:15 180 H 20 151/110 98 10/17/17 23:03 98.6 F 74 18 141/59 10/17/17 22:58 73 16 144/90 95 10/17/17 21:45 151 H 18 120/95 98 10/17/17 20:45 98.0 F 66 16 132/74 96 - General General Appearance: Alert, Cooperative, No acute distress Limitations: No limitations - Head Head exam: Atraumatic, Normocephalic, Normal inspection - Eye Eye exam: Normal appearance, PERRL - Neck Neck exam: Normal inspection, Full ROM. negative: Tenderness - Respiratory Respiratory exam: Normal lung sounds bilaterally. negative: Respiratory distress - Cardiovascular Cardiovascular Exam: Normal rhythm, Tachycardia. negative: Regular rate - GI/Abdominal GI/Abdominal exam: Soft, Normal bowel sounds. negative: Tenderness - Extremities Extremities exam: Normal inspection, Full ROM, Normal capillary refill. negative: Tenderness - Neurological Neurological exam: Alert, Normal gait. negative: Abnormal gait, Motor sensory deficit Hospitalization - Hospitalization Admission Diagnosis: 1. Nonsustained Supraventricular Tachycardia - Problem List/Discharge Diagnosis (1) Nonsustained paroxysmal supraventricular tachycardia Current Visit: Yes Status: Acute Base Code: I47.1 - SUPRAVENTRICULAR TACHYCARDIA Comment: - continue monitoring on tele currently ranging 60-70s, d/c IV cardizem - Metoprolol 25mg BID PO - Cardiology consulted - recommend EP evaluation for ablation. EP Cardiology at [facility] to see when discharged. (2) Hypertension Current Visit: Yes Status: Acute Base Code: I10 - ESSENTIAL (PRIMARY) HYPERTENSION Comment: - BP 118/80 - on Metoprolol 25mg BID. (3) Hypothyroidism Current Visit: No Status: Acute Base Code: E03.9 - HYPOTHYROIDISM, UNSPECIFIED Comment: - TSH 0.25mcg, recheck in 6-8 weeks on d/c - change Synthyroid dose to 50mcg QD. - Disposition D/C if stable this afternoon. F/U with cardiology as arranged - Hospitalization Course Procedures: Cardiology Procedures 10/17/17 22:05 EKG NOW 10/18/17 03:32 EKG NOW Abnormal Labs: Abnormal Lab Results 10/18/17 Range/Units 06:38 Troponin T 0.014 H (0-0.010) ng/mL Condition at Discharge: (2) Stable Discharge Medications - Discharge Medications Prescriptions: Levothyroxine Sodium 50 mcg PO DAILY 30 Days tablet Metoprolol Tartrate [Lopressor] 25 mg PO BID #60 tab Home Medications: Ambulatory Orders Multivitamin [Daily Multiple Vitamin] 1 each PO DAILY 06/16/15 [Last Taken 10/17] Aspirin [Aspir-Low] 81 mg PO DAILY 10/17/17 [Last Taken 10/17/17] Lorazepam [Ativan] 0.5 mg PO QHS 10/17/17 [Last Taken 10/16/17] Levothyroxine Sodium 50 mcg PO DAILY 30 Days tablet 10/18/17 [Last Taken Unknown] Metoprolol Tartrate [Lopressor] 25 mg PO BID #60 tab 10/18/17 [Last Taken Unknown] Discharge Plan - Discharge Instructions Additional Instructions: - f/u with EP Cardiology as arranged - start Lopressor 25mg twice daily - reduce Levothyroxine to 50mcg daily - discontinue Catapres 0.1 - f/u with PCP in 5-10 days Quality Measures - Quality Measures Quality Measures: Documentation of Current Medications in Medical Record, Screening for High Blood Pressure and F/U Documented - Current Medications Quality Measure: Measure #130: Documentation of Current Medications - Blood Pressure Screening Quality Measure: Screening for High Blood Pressure and Follow-Up Documented Blood Pressure Classification: Hypertensive Reading Systolic Measurement: 183 Diastolic Measurement: 120 - Elder Abuse Suspicion Index EASI Reference Information: Sterling FRAGA, Darion Membreno, Demetria Morales, Brenda Moss.Development and validation of a tool to assist physicians identification of elder abuse: The Elder Abuse Suspicion Index (EASI ). Journal of Elder Abuse and Neglect, 2008; 20 (3): 276-300.
[2017-10-18] MEDS ORDERED: METOPROLOL TART 25 MG TABLET PO SCH (22:00)
== END 2017-10-18 16:58 | disposition home or self-care (01) ==
LOC: ER 16:19 → MEDSURG 20:43
PROVIDERS: ADMIT Internal Medicine; ATTEND Internal Medicine
DX: I47.1 Supraventricular tachycardia (principal); I10 Essential (primary) hypertension; E03.9 Hypothyroidism, unspecified; Z85.3 Personal history of malignant neoplasm of breast
CPT/HCPCS: 80053; 82550; 82553; 84443; 84484; 85025; 85610; 85730; 93005; 93010; 96374; 96375; 99220; 99285; J2405; J7030

== ENCOUNTER 2018-08-26 10:08 | Emergency (ER) | payer BC ==
--- NOTE | 2018-08-26 11:20 | Emergency Department Record ---
History of Present Illness - General Chief Complaint: Hypertension Stated Complaint: HIGH BP Time Seen by Provider: 08/26/18 10:32 Source: Patient Mode of Arrival: Ambulatory Limitations: No limitations - History of Present Illness Initial Comments: pt was at drs office and was found to have a bp of 172/108 and was sent here. she is having no cp, blanca or other symptoms. she did have a nosebleed. she was at her primary care when this was found. her mud jack nozzleman is the one that prescribes her bp meds. pt is in the process of switching mud jack nozzleman. she has a hx of arrythmias and has had an ablation. she took her bp med this am. Onset/Timin -: Minutes(s) Timing: Unsure - Sara Coma Scale Eye Response: (4) Open spontaneously Motor Response: (6) Obeys commands Verbal Response: (5) Oriented [place] Total: 15 - Related Data Home Medications Medication Instructions Recorded Confirmed Last Taken Fluticasone Propionate [24 Hour 9.9 ml NS DAILY 08/26/18 08/26/18 08/26/18 Allergy] Metoprolol Tartrate [Lopressor] 50 mg PO BID 08/26/18 08/26/18 08/26/18 Propafenone HCl [Propafenone HCl 225 mg PO BID 08/26/18 08/26/18 08/26/18 ER] Previous Rx's Medication Instructions Recorded Levothyroxine Sodium 50 mcg PO DAILY 30 Days tablet 10/18/17 Allergies Allergy/AdvReac Type Severity Reaction Status Date / Time Sulfa (Sulfonamide Allergy Intermediate VOMITING Verified 08/12/17 09:52 Antibiotics) Travel Screening - Travel/Exposure Within Last 30 Days Have you traveled within the last 30 days?: No - Travel/Exposure Within Last Year Have you traveled outside the [place] in the last year?: No - Additonal Travel Details Have you been exposed to anyone with a communicable illness?: No Review of Systems Reviewed: No additional complaints except as noted below Constitutional: Reports: As per HPI. Denies: Chills, Fever, Malaise, Night sweats, Weakness, Weight change Eyes: Reports: As per HPI. Denies: Eye discharge, Eye pain, Photophobia, Vision change ENT: Reports: As per HPI. Denies: Congestion, Dental pain, Ear pain, Epistaxis , Hearing loss, Throat pain Respiratory: Reports: As per HPI. Denies: Cough, Dyspnea, Hemoptysis, Stridor, Wheezes Cardiovascular: Reports: As per HPI. Denies: Arrhythmia, Chest pain, Dyspnea on exertion, Edema, Murmurs, Orthopnea, Palpitations, Paroxysmal nocturnal dyspnea, Rheumatic Fever, Syncope Endocrine: Reports: As per HPI. Denies: Fatigue, Heat or cold intolerance, Polydipsia, Polyuria Gastrointestinal: Reports: As per HPI. Denies: Abdominal pain, Constipation, Diarrhea, Hematemesis, Hematochezia, Melena, Nausea, Vomiting Genitourinary: Reports: As per HPI. Denies: Abnormal menses, Discharge, Dyspareunia, Dysuria, Frequency, Hematuria, Incontinence, Retention, Urgency Musculoskeletal: Reports: As per HPI. Denies: Arthralgia, Back pain, Gout, Joint swelling, Myalgia, Neck pain Skin: Reports: As per HPI. Denies: Bruising, Change in color, Change in hair/ nails, Lesions, Pruritus, Rash Neurological: Reports: As per HPI. Denies: Abnormal gait, Confusion, Headache, Numbness, Paresthesias, Seizure, Tingling, Tremors, Vertigo, Weakness Psychiatric: Reports: As per HPI. Denies: Anxiety, Auditory hallucinations, Depression, Homicidal thoughts, Suicidal thoughts, Visual hallucinations Hematological/Lymphatic: Reports: As per HPI. Denies: Anemia, Blood Clots, Easy bleeding, Easy bruising, Swollen glands Past Medical History - SOCIAL HISTORY Smoking Status: Former smoker Alcohol Use: None Drug Use: None - RESPIRATORY Hx Respiratory Disorders: No Hx Asthma: No Hx Bronchitis: No Hx COPD: No Hx Dyspnea: No Hx Pneumonia: No Hx Pulmonary Embolism: No Hx Sleep Apnea: No Hx Tuberculosis: No Hx of CPAP: No - CARDIOVASCULAR Hx Cardio Disorders: Yes Hx Cardiac Cath: No Hx Chest Pain: No Hx CHF: No Hx Deep Vein Thrombosis: No Hx Edema: No Hx Heart Attack: No Hx Hypertension: Yes Hx Hypotension: No Hx Irregular Heartbeat: Yes Hx Palpitations: Yes (last week) Hx Vascular Disease: No Comment:: MSP - NEURO Hx Neuro Disorders: No Hx Brain Tumor: No Hx CVA: No Hx Dementia: No Hx Dizziness: Yes Hx Headaches: No Hx Neuropathy: No Hx Parkinson's Disease: No Hx Seizures: No Hx Speech Problem: No Hx TIA: No - GI Hx GI Disorders: Yes Hx Abdominal Pain: Yes Hx Celiac Disease: No Hx Crohn's Disease: No Hx Diverticulitis: No Hx GI Bleed: No Hx Reflux: Yes Hx Hepatitis/Jaundice: No Hx Hiatal Hernia: No Hx Irritable Bowel: No Hx Liver Disease: No Hx Nausea/Vomiting: Yes Hx Obstructive Bowel: No Hx Pancreatitis: No Hx Rectal Bleeding: No Hx Ulcer: Yes Hx Wt Loss/Wt Gain: No Hx of Polyps: No - Hx Genitourinary Disorders: No Hx Bladder Problem: Yes (frequency/urgency) Hx Dialysis: No Hx Kidney Stones: No Hx Renal Disease: No Hx UTI: No - ENDOCRINE Hx Endocrine Disorders: Yes Hx Diabetes: No Hx Thyroid Disease: Yes - MUSCULOSKELETAL Hx Musculoskeletal Disorders: Yes Hx Arthritis: Yes Hx Back Injury: No Hx Fibromyalgia: No Hx Gout: No Hx Musculoskeletal Disease: No Hx Osteoporosis: No - PSYCH Hx Psych Problems: No Hx Anxiety: No Hx Behavior Problems: No Hx Depression: No Hx Emotional Abuse: No Hx Sexual Abuse: No Hx Suicide Attempt: No - HEMATOLOGY/ONCOLOGY Hx Hematology/Oncology Disorders: No Hx Anemia: No Hx Blood Disorders: No Hx Bruising: No Hx Cancer: No Hx Clotting Problems: No Hx Sickle Cell Disease: No Hx Unexplained Bleeding: No Hx Blood Transfusions: No Hx Blood Transfusion Reaction: No Family Medical History Any Significant Family History?: No Hx Cancer: Mother, Brother/Sister, Grandparents *Cancer Comment: breast Hx HTN: Mother Physical Exam - General General Appearance: Alert, Oriented x3, Cooperative, Mild distress - Head Head exam: Normal inspection - Eye Eye exam: Normal appearance, PERRL, EOMI Pupils: Normal accommodation - ENT ENT exam: Normal exam, Mucous membranes moist, Normal external ear exam, Normal orophraynx Ear exam: Normal external inspection. negative: External canal tenderness Nasal Exam: Normal inspection. negative: Discharge, Sinus tenderness Mouth exam: Normal external inspection, Tongue normal Teeth exam: Normal inspection. negative: Dental caries Throat exam: Normal inspection. negative: Tonsillar erythema, Tonsillar exudate - Neck Neck exam: Normal inspection, Full ROM. negative: Tenderness - Respiratory Respiratory exam: Normal lung sounds bilaterally. negative: Respiratory distress - Cardiovascular Cardiovascular Exam: Normal rhythm, Normal heart sounds, Bradycardia - GI/Abdominal GI/Abdominal exam: Soft, Normal bowel sounds. negative: Tenderness - Rectal Rectal exam: Deferred - exam: Deferred - Extremities Extremities exam: Normal inspection, Full ROM, Normal capillary refill. negative: Tenderness - Back Back exam: Reports: Normal inspection, Full ROM. Denies: Muscle spasm, Rash noted, Tenderness - Neurological Neurological exam: Alert, CN II-XII intact, Normal gait, Oriented X3 - Psychiatric Psychiatric exam: Normal affect, Normal mood - Skin Skin exam: Dry, Intact, Normal color, Warm Course Vital Signs 08/26/18 10:23 Temperature 97.4 F L Pulse Rate 53 L Respiratory 20 Rate Blood Pressure 188/109 Pulse Ox 98 - Reevaluation(s) Reevaluation #1: 08/26/18 12:33 d/w dr villasenor Reevaluation #2: 08/26/18 12:33 pts bp 145/90 Medical Decision Making - Lab Data Result diagrams: 08/26/18 11:08 08/26/18 11:08 Disposition Disposition: Discharge Clinical Impression: Hypertension Qualifiers: Hypertension type: essential hypertension Qualified Code(s): I10 - Essential ( primary) hypertension Disposition: Home, Self-Care Condition: (1) Good Instructions: Hypertension (ED) Additional Instructions: follow up with dr villasenor on sep 03 at 1:45 in specialty clinic. return sooner if worse. Referrals: WILL VILLASENOR M.D. [MEDICAL DOCTOR] - [facility] Special[facility] [Provider Group] Forms: Patient Portal Access Quality - Quality Measures Quality Measures: N/A - Blood Pressure Screening Does Patient Have Any of the Following: Active Dx of HTN Blood Pressure Classification: Hypertensive Reading Systolic Measurement: 188 Diastolic Measurement: 109 Screening for High Blood Pressure: Patient Exclusion, Hx of HTN [[id number]]
[2018-08-26 11:22] LABS: BASO % 0.4 % (0-6); EOS % 1.8 % (0-6); GRAN % 79.7 % (47-80); HEMATOCRIT 44.6 % (35.0-47.0); HEMOGLOBIN 15.6 gm/dl (11.6-16.0); LYMPH % 11.9 % (16-45); MEAN CELL VOLUME 90.7 fl (81-97); MEAN CORPUSCULAR HEMOGLOBIN 31.7 pg (27-33); MEAN PLATELET VOLUME 8.5 fl (7.4-10.4); MONO % 6.2 % (0-9); PLATELET COUNT 242 K/uL (130-400); RED BLOOD COUNT 4.92 M/uL (3.80-5.40); RED CELL DISTRIBUTION WIDTH 12.4 % (11.5-14.5); WHITE BLOOD COUNT W/O DIFF 8.4 K/uL (4.2-12.2)
[2018-08-26 11:41] LABS: THYROID STIMULATING HORMONE 2.98 uIU/mL (0.270-4.20)
[2018-08-26 11:47] LABS: URINE APPEARANCE CLEAR; URINE BILIRUBIN NEGATIVE (NEGATIVE); URINE BLOOD TRACE-I (NEGATIVE); URINE COLOR YELLOW; URINE GLUCOSE (UA) NEGATIVE (NEGATIVE); URINE KETONE NEGATIVE (NEGATIVE); URINE LEUKOCYTE ESTERASE NEGATIVE (NEGATIVE); URINE NITRITE NEGATIVE (NEGATIVE); URINE PROTEIN NEGATIVE (NEGATIVE); URINE UROBILINOGEN 0.2 E.U./dL (0.20 - 1.00)
[2018-08-26 12:04] LABS: URINE BACTERIA NONE SEEN; URINE EPITHELIAL CELLS 0 - 2 (FEW); URINE RBC 0 - 2 (NONE SEEN); URINE WBC 0 - 2 (0-2/hpf)
== END 2018-08-26 12:45 | disposition home or self-care (01) ==
LOC: ER 10:08
DX: I10 Essential (primary) hypertension (principal); Z87.891 Personal history of nicotine dependence
CPT/HCPCS: 80048; 81001; 84443; 84484; 85025; 93005; 93010; 99284